=== PATIENT | female | born 1985 | race Caucasian/White ===

== ENCOUNTER 2021-11-21 15:08 | Emergency (ER) | payer OTHER ==
[~2021-11-21] VITALS: Ht 160 cm; Wt 59.0 kg
[2021-11-21] MEDS ORDERED: KETOROLAC TROMETHAMINE 15 MG INJ IVP ONE (15:30)
[2021-11-21] MEDS ORDERED: ACETAMINOPHEN ES 500 MG TABLET PO ONE (15:30)
--- NOTE | 2021-11-21 15:33 | NUR ---
VS BP 122/73 SPO2 99% HR 70 STABLE
[2021-11-21] MEDS ORDERED: ACETAMINOPHEN ES 500 MG TABLET ONE (15:38)
[2021-11-21] MEDS ORDERED: KETOROLAC TROMETHAMINE 15 MG INJ ONE (15:38)
--- NOTE | 2021-11-21 15:51 | NUR ---
PT IS IN ROOM #2B. DR SPENCE EVALUATED THE PT.
[2021-11-21 15:56] LABS: MEAN CORPUSCULAR HEMOGLOBIN 31.1 uug (24.7-32.8); MEAN CORPUSCULAR VOLUME 91.3 fL (75.5-95.3); PLATELET COUNT (AUTO) 318 K/uL (179-408)
[2021-11-21 16:01] LABS: *BILIRUBIN,URIN NEGATIVE (NEGATIVE); *BLOOD, URINE NEGATIVE (NEGATIVE); *CLARITY,URINE CLEAR (CLEAR); *COLOR,URINE YELLOW (YELLOW); *KETONES,URINE NEGATIVE (NEGATIVE); *UROBILINOGEN,URINE 0.2 E.U./dl (NORMAL); LEUKOCYTE ESTERASE ,URINE TRACE (NEGATIVE); NITRITE, URINE NEGATIVE (NEGATIVE); PH,URINE 6.5 (5.0-8.0); UGLUCOSE NEGATIVE (NEGATIVE)
[2021-11-21 16:02] LABS: CARBON DIOXIDE 28 mmol/L (21-32); CHLORIDE 104 mmol/L (98-107); CREATININE 0.5 mg/dL (0.6-1.3); GLUCOSE 89 mg/dL (74-106); UREA NITROGEN, BLOOD 6 mg/dL (7-18)
[2021-11-21 16:07] LABS: *URINE HCG, QUAL NEG (NEGATIVE)
[2021-11-21 16:11] LABS: ALANINE AMINOTRANSFERASE 20 U/L (14-59); ALKALINE PHOSPHATASE 55 U/L (50-136); ASPARTATE AMINOTRANSFERASE 12 U/L (15-37); BILIRUBIN,DIRECT 0.2 mg/dL (0.0-0.2); BILIRUBIN,TOTAL 0.4 mg/dL (0.2-1.0); LIPASE 86 U/L (73-393); TOTAL PROTEIN, SERUM 7.2 g/dL (6.4-8.2)
[2021-11-21] MEDS ORDERED: CEFTRIAXONE /D5W 50ML IVPB **ER PYXIS IV ONE (17:11)
[2021-11-21] MEDS ORDERED: CEFTRIAXONE 1 G in IV DEXTROSE 5% 50 ML IV ONE (17:15)
[2021-11-21] MEDS ORDERED: CEPH500C2 PO (17:56)
[2021-11-21 18:03] LABS: BACTERIA,URINE MANY /HPF (NONE SEEN); RBC,URINE 0-3 /HPF (0-3); SQUAMOUS EPITHELIAL CELL,UR MANY /HPF (NONE SEEN)
[2021-11-21 18:05] LABS: MUCUS,URINE MODERATE /LPF (0-FEW)
--- NOTE | 2021-11-21 18:12 | NUR ---
PT WAS D/C'd TO HOME. D/C INSTRUCTIONS GIVEN TO THE PT BY DR SPENCE.
[2021-11-21 18:13] VITALS: BP 131/66
== END 2021-11-21 18:14 | disposition home or self-care (01) ==
LOC: ER 15:12
DX: R10.2 Pelvic and perineal pain (principal); N12 Tubulo-interstitial nephritis, not specified as acute or chronic; Z88.0 Allergy status to penicillin
CPT/HCPCS: 99284; 96365; 96375; 80076; 80048; 81001; 84703; 83690; 85025; 87086; 36415; J0696; J1885; A4663; A9150

== ENCOUNTER 2021-12-29 00:44 | Emergency (ER) | payer SELFPAY ==
[~2021-12-29 00:44] MED LIST: CEPH500C2 PO
--- NOTE | 2021-12-29 01:10 | NUR ---
Patient was called to be triaged but was not present in the waiting room or outside of ER.
--- NOTE | 2021-12-29 01:40 | NUR ---
PATIENT WAS CALLED TO BE TRIAGED BUT WAS NOT PRESENT. PATIENT WAS NOT TRIAGED OR SEEN BY [facility].
== END 2021-12-29 01:42 | disposition left against medical advice (07) ==
LOC: ER 00:53
DX: Z53.21 Procedure and treatment not carried out due to patient leaving prior to being seen by health care provider (principal)